=== PATIENT | female | born 2000 | race Asian ===

== ENCOUNTER 2018-06-09 12:58 | Emergency (ER) | payer MEDICAID ==
[~2018-06-09] VITALS: Ht 157.5 cm; Wt 52.2 kg
--- NOTE | 2018-06-09 13:04 | NUR ---
PT BIBA BLS TO BED 6
[2018-06-09 13:05] VITALS: BP 95/60
--- NOTE | 2018-06-09 13:29 | NUR ---
VISITORS AT BEDSIDE.
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
--- NOTE | 2018-06-09 14:13 | NUR ---
JENA STATED TO CALL HER WHEN PT IS READY FOR DISCHARGE. [phone]
--- NOTE | 2018-06-09 14:28 | NUR ---
DR. HARRELL AT BEDSIDE.
[2018-06-09] MEDS ORDERED: BACITRACIN OINT 500 UNITS/GM PKT TP ONE (14:30)
[2018-06-09] MEDS ORDERED: ACETAMINOPHEN EXTRA STRENGTH 500 MG TAB PO ONE (14:30)
[2018-06-09 14:50] VITALS: BP 111/62
== END 2018-06-09 14:50 | disposition home or self-care (01) ==
LOC: MED 12:58
DX: S00.81XA Abrasion of other part of head, initial encounter (principal); S80.211A Abrasion, right knee, initial encounter; S09.90XA Unspecified injury of head, initial encounter; M54.2 Cervicalgia; R42 Dizziness and giddiness; Z88.0 Allergy status to penicillin; W31.89XA Contact with other specified machinery, initial encounter; Y93.89 Activity, other specified; Y92.89 Other specified places as the place of occurrence of the external cause; Y99.8 Other external cause status
CPT/HCPCS: 99283